=== PATIENT | male | born 1970 | race Two or more races ===

== ENCOUNTER 2017-12-31 04:34 | Emergency (ER) | payer OTHER ==
[~2017-12-31] VITALS: Ht 180.3 cm; Wt 106.6 kg
[2017-12-31] MEDS ORDERED: LIPITOR20 MG (05:03)
[2017-12-31] MEDS ORDERED: KETO10TA2 PO (10:05)
== END 2017-12-31 10:44 | disposition home or self-care (01) ==
LOC: ER 04:34
DX: R10.11 Right upper quadrant pain (principal); R10.31 Right lower quadrant pain

== ENCOUNTER 2020-01-19 15:45 | Outpatient (CLI) | payer OTHER ==
[~2020-01-19 15:45] MED LIST: KETO10TA2 PO; LIPITOR20 MG
== END 2020-01-19 15:54 | disposition home or self-care (01) ==
LOC: RAD 15:45
PROVIDERS: ATTEND Urology
DX: N20.1 Calculus of ureter (principal); N40.1 Benign prostatic hyperplasia with lower urinary tract symptoms